=== PATIENT | male | born 1970 | race Caucasian/White ===

== ENCOUNTER 2016-12-18 04:15 | Emergency (ER) | payer SELFPAY ==
[2016-12-18 04:32] VITALS: BP 142/86; PULSE 98; RESP 16; TEMP 97.5
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
[2016-12-18 04:53] LABS: Basophils % (A) 0 %; CH 31.4; CHCM 34.1; Eosinophils # (A) 0.1 k/uL (0-0.7); Eosinophils % (A) 1 %; HDW 2.31; HGB 17.2 gm/dL (13.0-17.5); Luc # (Auto) 0.15; Luc % (Auto) 1; Lymphocytes # (A) 1.5 k/uL (1.0-4.8); Lymphocytes % (A) 13 %; MCH 31.8 pg (25.0-35.0); MCHC 34.4 g/dL (31.0-37.0); MCV 92.6 fL (80.0-100.0); Monocytes # (A) 0.5 k/uL (0-1.0); Monocytes % (A) 5 %; Neutrophils # (A) 9.3 k/uL (1.3-7.7); Neutrophils % (A) 80 %; RDW 13.1 % (11.5-15.5); WBC 11.6 k/uL (3.8-10.6); WBC (Perox) 11.45
[2016-12-18 05:04] LABS: ALT 43 U/L (21-72); AST 33 U/L (17-59); Alkaline Phosphatase 73 U/L (38-126); Amylase 89 U/L (30-110); Anion Gap 12 mmol/L; Blood Urea Nitrogen 17 mg/dL (9-20); Calcium 9.1 mg/dL (8.4-10.2); Carbon Dioxide 24 mmol/L (22-30); Chloride 105 mmol/L (98-107); Glucose 121 mg/dL (74-99); Non-African American GFR(MDRD) >60 (>60 ml/min/1.73 sqM); Potassium 4.2 mmol/L (3.5-5.1); Sodium 141 mmol/L (137-145); Total Bilirubin 0.4 mg/dL (0.2-1.3); Total Protein 7.5 g/dL (6.3-8.2)
[2016-12-18 05:05] LABS: Partial Thromboplastin Time 23.9 sec (22.0-30.0); Prothrombin Time 10.6 sec (9.0-12.0)
[2016-12-18 05:06] LABS: Alcohol 206 mg/dL
[2016-12-18 05:21] LABS: Creatine Kinase 168 U/L (55-170)
[2016-12-18 05:32] LABS: Creatine Kinase MB 1.4 ng/mL (0.0-2.4); Troponin I <0.012 ng/mL (0.000-0.034)
[2016-12-18] MEDS ORDERED: MORPHINE SULFATE 4 MG/ML SYRINGE IV STA (06:16)
[2016-12-18] MEDS ORDERED: TOPICAL SKIN ADHESIVE 1 EACH AMP TOPICAL ONE ×2 (06:22→06:27)
--- NOTE | 2016-12-20 02:44 | CDI ---
Documentation Clarification OP Dear German TOLBERT MD: Please do addendum to ED report for HPI and physical exam. Thank you, Mallory Torres Clerk Checker If you have any question, Please contact harbor department manager at [phone] [facility]
== END 2016-12-18 07:42 | disposition home or self-care (01) ==
LOC: EC 04:15
DX: S01.311A Laceration without foreign body of right ear, initial encounter (principal); J45.909 Unspecified asthma, uncomplicated; Z79.51 Long term (current) use of inhaled steroids; Z79.52 Long term (current) use of systemic steroids; Z79.899 Other long term (current) drug therapy; Z88.6 Allergy status to analgesic agent; V86.59XA Driver of other special all-terrain or other off-road motor vehicle injured in nontraffic accident, initial encounter; Y92.89 Other specified places as the place of occurrence of the external cause
CPT/HCPCS: 36415; 86900; 86901; 80053; 82150; 82550; 82553; 83605; 83690; 84484; 85025; 85610; 85730; 86850; 80320; 71010; 99283; 96374; 12013; J2270; 93005

== ENCOUNTER → 2017-02-08 | Outpatient (CLI) | payer SELFPAY ==
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
== END | disposition home or self-care (01) ==
LOC: RADXRMAIN 13:43
PROVIDERS: ATTEND Internal Medicine
DX: J98.11 Atelectasis (principal); R07.89 Other chest pain
CPT/HCPCS: 71020

== ENCOUNTER → 2017-05-20 | Outpatient (CLI) | payer BC ==
[2017-05-20 11:05] LABS: Basophils # (A) 0.1 k/uL (0-0.2); Basophils % (A) 1 %; Eosinophils # (A) 1.2 k/uL (0-0.7); Eosinophils % (A) 11 %; HCT 48.8 % (39.0-53.0); HGB 16.1 gm/dL (13.0-17.5); Lymphocytes # (A) 1.8 k/uL (1.0-4.8); Lymphocytes % (A) 17 %; MCH 31.1 pg (25.0-35.0); MCV 94.2 fL (80.0-100.0); Mean Platelet Volume 7.4; Monocytes # (A) 0.6 k/uL (0-1.0); Monocytes % (A) 5 %; Neutrophils # (A) 6.5 k/uL (1.3-7.7); Neutrophils % (A) 64 %; Platelet Count 221 k/uL (150-450); RBC 5.19 m/uL (4.30-5.90); RDW 14.5 % (11.5-15.5); WBC 10.2 k/uL (3.8-10.6)
[2017-05-20 11:27] LABS: ALT 35 U/L (21-72); AST 29 U/L (17-59); Albumin 3.9 g/dL (3.5-5.0); Alkaline Phosphatase 66 U/L (38-126); Anion Gap 10 mmol/L; Blood Urea Nitrogen 20 mg/dL (9-20); Calcium 9.3 mg/dL (8.4-10.2); Carbon Dioxide 26 mmol/L (22-30); Chloride 107 mmol/L (98-107); Glucose 85 mg/dL (74-99); Potassium 4.1 mmol/L (3.5-5.1); Sodium 143 mmol/L (137-145); Total Bilirubin 0.6 mg/dL (0.2-1.3); Total Protein 6.4 g/dL (6.3-8.2)
[2017-05-20 11:41] LABS: Total Eosinophil Count 1122 #EOS/uL (150-300)
[2017-05-20 12:37] LABS: Erythrocyte Sedimentation Rate 6 mm/hr (0-15)
[2017-05-22 14:09] LABS: C-ANCA <1:20 Titer (<1:20); P-ANCA <1:20 Titer (<1:20)
== END | disposition home or self-care (01) ==
LOC: LABWHC1 10:49
PROVIDERS: ATTEND Internal Medicine
DX: J82 Pulmonary eosinophilia, not elsewhere classified (principal)
CPT/HCPCS: 36415; 80053; 85008; 85025; 85652; 86038; 86255

== ENCOUNTER → 2017-06-02 | Outpatient (CLI) | payer BC ==
--- NOTE | 2017-06-02 15:51 | XR ---
EXAMINATION TYPE: XR elbow complete RT DATE OF EXAM: 06/02/2017 COMPARISON: NONE HISTORY: Fall, pain x18 months TECHNIQUE: Three-view right elbow FINDINGS: Radius aligns normally with the humerus. Anterior fat pad is normal. No elevation of chipper ior fat pad is evident. Olecranon is unremarkable. Soft tissues are normal. IMPRESSION: 1. Normal three-view right elbow.
--- NOTE | 2017-06-02 15:51 | XR ---
EXAMINATION TYPE: XR cervical spine comp DATE OF EXAM: 06/02/2017 COMPARISON: NONE HISTORY: neck pain arm pain radiculopathy cervalgia TECHNIQUE: Five-view cervical spine FINDINGS: Odontoid tip is limited due to overlying occiput. Prevertebral space is normal. Disc height s are preserved. Vertebral body heights are preserved. Posterior spinal lamellar line is intact. Fora men are patent. IMPRESSION: 1. Visualized cervical spine is unremarkable.
== END | disposition home or self-care (01) ==
LOC: RADXRYALE 15:27
PROVIDERS: ATTEND Family Medicine
DX: M25.521 Pain in right elbow (principal); M54.12 Radiculopathy, cervical region
CPT/HCPCS: 72050

== ENCOUNTER → 2020-04-14 | Outpatient (CLI) | payer BC ==
[2020-04-14 09:26] LABS: Basophils # (A) 0.1 k/uL (0-0.2); Basophils % (A) 1 %; Eosinophils # (A) 0.1 k/uL (0-0.7); Eosinophils % (A) 2 %; HCT 46.3 % (39.0-53.0); HGB 15.2 gm/dL (13.0-17.5); Lymphocytes # (A) 2.1 k/uL (1.0-4.8); Lymphocytes % (A) 27 %; MCH 31.3 pg (25.0-35.0); MCHC 32.8 g/dL (31.0-37.0); MCV 95.2 fL (80.0-100.0); Mean Platelet Volume 7.2; Monocytes # (A) 0.6 k/uL (0-1.0); Monocytes % (A) 7 %; Neutrophils % (A) 63 %; Platelet Count 219 k/uL (150-450); RBC 4.86 m/uL (4.30-5.90); RDW 12.8 % (11.5-15.5)
[2020-04-14 09:31] LABS: Total Eosinophil Count 135 #EOS/uL (150-300)
[2020-04-14 10:32] LABS: Erythrocyte Sedimentation Rate 3 mm/hr (0-15)
== END | disposition home or self-care (01) ==
LOC: LABWHC1 08:14
PROVIDERS: ATTEND Internal Medicine
DX: J45.909 Unspecified asthma, uncomplicated (principal)
CPT/HCPCS: 36415; 82785; 85008; 85025; 85652

== ENCOUNTER → 2020-10-02 | Outpatient (CLI) | payer BC ==
--- NOTE | 2020-10-02 13:08 | XR ---
EXAMINATION TYPE: XR lumbosacral spine 5 views DATE OF EXAM: 10/02/2020 Comparison: 07/27/2015 Clinical History: 50-year-old male M545, M5136, LBP, DDD Findings: Mild anterior wedging at L1 was seen on the prior 2016 exam. Hypertrophic facet arthropathy mid to lo wer lumbar spine. Trace grade 1 retrolisthesis L3-L4. Remaining alignment is maintained. Mild to mode rate degenerative disc disease with disc space narrowing at L3-L4, progressed from 2016. No new verte bral compression collapse. Slight dextro convex curvature of the lumbar spine. There may be a left L5 hemisacralization. Impression: 1. Suggestion of a left L5 hemisacralization. Slight dextroconvex scoliotic curvature of the lumbar s pine. 2. Hypertrophic facet arthropathy mid to lower lumbar spine with trace degenerative grade 1 retrolist hesis at L3-L4. 3. Mild anterior wedging deformity of L1 remains unchanged.
== END | disposition home or self-care (01) ==
LOC: RADXRYALE 08:55
PROVIDERS: ATTEND Family Medicine
DX: M41.86 Other forms of scoliosis, lumbar region (principal); M47.816 Spondylosis without myelopathy or radiculopathy, lumbar region; M43.16 Spondylolisthesis, lumbar region
CPT/HCPCS: 72110

== ENCOUNTER 2021-05-31 16:56 | Emergency (ER) | payer BC ==
[2021-05-31 17:37] VITALS: TEMP 98.9
--- NOTE | 2021-05-31 18:59 | XR ---
EXAMINATION TYPE: XR chest 2V DATE OF EXAM: 05/31/2021 6:16 PM COMPARISON:Multiple radiographs, with the most recent on 02/08/2017 TECHNIQUE: Frontal and lateral views of the chest. CLINICAL INDICATION:Male, 50 years old with history of cough; FINDINGS: Lungs/Pleura: There is flattening of the diaphragm with increased lucency of the lungs. No evidence o f pneumothorax, pleural effusion or focal consolidation. Pulmonary vascularity: Unremarkable. Heart/mediastinum: Cardiomediastinal silhouette is unremarkable. Musculoskeletal: Pectus excavatum morphology to the chest. Remote right rib injury. IMPRESSION: 1. No acute cardiopulmonary disease/process. 2. COPD changes.
[2021-05-31] MEDS ORDERED: methylPREDNISolone SOD SUCCI 125 MG/2 ML VIAL IM STA (19:27)
--- NOTE | 2021-05-31 19:30 | ED ---
General Adult HPI - General Chief complaint: Upper Respiratory Infection Stated complaint: Covid +, wants chest xray Time Seen by Provider: 05/31/21 19:17 Source: family, RN notes reviewed Mode of arrival: ambulatory Limitations: no limitations - History of Present Illness Initial comments: This is a pleasant 50-year-old male presents to emergency department complaining of cough, some wheezing, tested positive for COVID-19 last . Complaining of fatigue, cough, minimal shortness of breath. No headache, no fever or chills, no changes in vision or hearing, no sore throat or difficulty with speech, no neck pain, no chest pain, no abdominal pain, no nausea or vomiting, no changes in urination or bowel movements, no numbness or tingling, no extremity pain, no skin rashes or lesions. - Related Data Home Medications Medication Instructions Recorded Confirmed Montelukast [Singulair] 10 mg PO HS 07/27/15 04/15/19 predniSONE 5 mg PO DAILY 07/27/15 04/15/19 Inhaler (Unknown) 1 puff INHALATION QAM 04/15/19 Loratadine [Claritin] 10 mg PO DAILY 04/15/19 Previous Rx's Medication Instructions Recorded predniSONE 50 mg PO DAILY #6 tab 05/31/21 Allergies Allergy/AdvReac Type Severity Reaction Status Date / Time aspirin Allergy Anaphylaxis Verified 05/31/21 17:37 ibuprofen Allergy Anaphylaxis Verified 05/31/21 17:37 ketorolac tromethamine Allergy Anaphylaxis Verified 05/31/21 17:37 [From Toradol] Review of Systems ROS Statement: Those systems with pertinent positive or pertinent negative responses have been documented in the HPI. ROS Other: All systems not noted in ROS Statement are negative. Past Medical History Past Medical History: Asthma, GERD/Reflux Additional Past Medical History / Comment(s): problems swallowing History of Any Multi-Drug Resistant Organisms: MRSA Date of last positivie culture/infection: 07/05/19 MDRO Source:: Right Leg Past Surgical History: Hernia Repair Additional Past Surgical History / Comment(s): nasal polyp removal Past Anesthesia/Blood Transfusion Reactions: No Reported Reaction Past Psychological History: No Psychological Hx Reported Smoking Status: Never smoker Past Alcohol Use History: None Reported Past Drug Use History: None Reported - Past Family History Mother Family Medical History: No Reported History Father Family Medical History: No Reported History General Exam - General Exam Comments Initial Comments: Vital signs reviewed, stable, patient does not appear to be ill or toxic. No increased work of breathing. Limitations: no limitations General appearance: alert, in no apparent distress Head exam: Present: atraumatic, normocephalic, normal inspection Eye exam: Present: normal appearance, PERRL, EOMI. Absent: scleral icterus, conjunctival injection, periorbital swelling ENT exam: Present: normal exam, mucous membranes moist Neck exam: Present: normal inspection. Absent: tenderness, meningismus, lymphadenopathy Respiratory exam: Present: wheezes. Absent: normal lung sounds bilaterally, respiratory distress, rales, rhonchi, stridor, chest wall tenderness, accessory muscle use, decreased breath sounds, prolonged expiratory Cardiovascular Exam: Present: regular rate, normal rhythm, normal heart sounds. Absent: systolic murmur, diastolic murmur, rubs, gallop, clicks GI/Abdominal exam: Present: soft, normal bowel sounds. Absent: distended, tenderness, guarding, rebound, rigid Extremities exam: Present: normal inspection, full ROM, normal capillary refill. Absent: tenderness, pedal edema, joint swelling, calf tenderness Back exam: Present: normal inspection Neurological exam: Present: alert, oriented X3, CN II-XII intact Psychiatric exam: Present: normal affect, normal mood Skin exam: Present: warm, dry, intact, normal color. Absent: rash Course Vital Signs 05/31/21 17:34 Temperature 98.9 F Pulse Rate 86 Respiratory 20 Rate Blood Pressure 131/78 O2 Sat by Pulse 96 Oximetry Medical Decision Making - Medical Decision Making Patient presents with symptomatology related to COVID-19 as well as a mild asthma exacerbation. We'll treat with corticosteroids, Solu-Medrol given here. Six-day course of prednisone 50 mg daily. Patient has inhalers at home. Patient also sees a metal container maker. We'll have him call the morning without fail. Illnesses Zithromax yesterday. Follow-up with your regular physician as directed. Return to the ER immediately if any symptoms worsen, new symptoms arise, or any other problems develop. Disposition Clinical Impression: COVID-19, Asthma exacerbation Disposition: HOME SELF-CARE Condition: Stable Instructions (If sedation given, give patient instructions): Coronavirus Disease 2019 (COVID-19), Asthma (ED) Additional Instructions: SELF QUARANTINE DISCHARGE: As you are at risk for symptoms due to coronavirus, please stay home and stay away from others as much as possible. Please maintain social distance of 6 feet if possible. You should not return to work until at least 3 days (72 hours) have passed since recovery of symptoms. This defined as resolution of fever without the use of fever reducing medicines and improvement in respiratory symptoms (e.g,, cough, shortness of breath) Isolation can end at least 5 days after symptom onset and after fever ends for 24 hours (without the use of fever-reducing medication) and symptoms are improving, if these people can continue to properly wear a well-fitted mask around others for 5 more days after the 5-day isolation period. If you're still having symptoms at the end of 5 day period, isolate for an additional 5 days. More information about what to do if you are sick can be found on the CDC website at https://www.cdc.gov/coronavi [place]/2019-ncov/xo-vag-mlb-sick/dqdoj-dbzf-bmtk.html Expect the symptoms to last for 7-14 days from onset. Use acetaminophen (Tylenol) as needed for discomfort. You can take a maximum of 1 gram every 6 hours for discomfort, with your total dose in 24 hours not exceeding 4 grams. Be sure to maintain hydration. Drink continuous water and/or items high in vitamin C, such as orange juice and/or lemonade. Unless you have high blood pressure, you may consider Sudafed (which is [id number]) for nasal congestion. I would suggest that a short acting Sudafed rather than the 24 hour Sudafed. For a cough you may take Mucinex or Robitussin. Also consider the use of Vicks Vapor Rub or your chest when you sleep. Use a humidifier that is cleaned frequently, in the bedroom at night. For Nausea /Vomiting/Diarrhea associated with your Illness: o Small frequent sips of room temperature liquids. o Diet: [employer] - If you are still experiencing discomfort and/or nausea please slowly advancing your diet using the BRAT Diet = bananas, rice, apples/apple sauce, toast. o With diarrhea avoid any dairy for 48 hours after symptoms resolved. o Continue with activity as tolerated. If your symptoms do get worse and you believe that the upper respiratory infection has developed into something else, such as pneumonia or severe dehydration, please return to the emergency department or follow-up with your primary care. But expect to be symptomatic for the days as indicated above Call your metal container maker in the morning to touch base, at least virtually. Prescriptions: predniSONE 50 mg PO DAILY #6 tab Is patient prescribed a controlled substance at d/c from ED?: No Referrals: Kenton Anthony DO [Primary Care Provider] - 06/02/21 Rowan Hernandez MD [STAFF PHYSICIAN] - 06/01/21 Time of Disposition: 19:29
[2021-05-31 19:44] VITALS: RESP 18
[2021-05-31 19:45] VITALS: BP 124/76; PULSE 78
== END 2021-05-31 19:44 | disposition home or self-care (01) ==
LOC: EC 16:56
DX: U07.1 COVID-19 (principal); J45.901 Unspecified asthma with (acute) exacerbation; K21.9 Gastro-esophageal reflux disease without esophagitis; Z79.52 Long term (current) use of systemic steroids; Z79.899 Other long term (current) drug therapy
CPT/HCPCS: 71046; 99285; 96372; J2930

== ENCOUNTER 2022-01-26 10:52 | Day surgery (SDC) | payer BC ==
[~2022-01-26 10:52] MED LIST: LACTATED RINGERS 1,000 ML IV SCH; LIDOCAINE 1% (10MG/ML) FOR IV START INTRADERMA PRN
[2022-01-26 12:00] VITALS: TEMP 97.6
[2022-01-26 12:16] LABS: Glucose,Whole Blood 72 mg/dL (70-110)
[2022-01-26] MEDS ORDERED: PROPOFOL 10 MG/ML 20 ML VIAL IV ONE (12:34)
--- NOTE | 2022-01-26 12:56 | P.PCN ---
Date of Procedure: 01/26/22 Procedure(s) Performed: BRIEF HISTORY: Patient is a 51-year-old pleasant white male scheduled for an elective colonoscopy as a part of screening for colorectal neoplasia PROCEDURE PERFORMED: Colonoscopy with biopsy. PREOPERATIVE DIAGNOSIS: Screening for colon cancer. IV sedation per Anesthesia. PROCEDURE: After informed consent was obtained, the patient, was brought into the endoscopy unit. IV sedation was administered by Anesthesia under continuous monitoring. Digital rectal examination was normal. Initially the Olympus CF-160 flexible video colonoscope was then inserted in the rectum, gradually advanced into the cecum without any difficulty. Careful examination was performed as the scope was gradually being withdrawn. Ileocecal valve and the appendiceal orifice were visualized and appeared normal. Prep was excellent. Mucosa of the cecum, ascending colon, transverse colon, appeared normal. In the descending colon there was a 3 mm sessile polyp removed by cold biopsy. Scattered left-sided diverticulosis seen. Rest of the descending colon, sigmoid colon, and rectum appeared normal. Retroflexion was performed in the rectum and no lesions were seen. The patient tolerated the procedure well. IMPRESSION: 3 mm descending colon polyp status post cold biopsy Scattered sigmoid diverticula RECOMMENDATIONS: Findings of this examination were discussed with the patient this family. He was advised to follow with the biopsy results. If the biopsy results and he can have a repeat colonoscopy in 5 years..
[2022-01-26 13:22] VITALS: RESP 16
[2022-01-26 13:23] VITALS: BP 104/60; PULSE 68
== END 2022-01-26 13:47 | disposition home or self-care (01) ==
LOC: ORWHC2ENDO 10:52
PROVIDERS: ATTEND Internal Medicine Gastroenterology
DX: Z12.11 Encounter for screening for malignant neoplasm of colon (principal); K57.30 Diverticulosis of large intestine without perforation or abscess without bleeding; D12.4 Benign neoplasm of descending colon
CPT/HCPCS: 88305; 45380; J2704

== ENCOUNTER 2024-03-25 07:10 | Emergency (ER) | payer BC, OTHER ==
[2024-03-25 07:14] VITALS: RESP 18
[2024-03-25] MEDS ORDERED: VANCOMYCIN IV PER PHARMACY 1 EACH MISC MISCELLANE PRN (07:51)
--- NOTE | 2024-03-25 08:04 | ED ---
General Adult HPI - General Chief complaint: Skin/Abscess/Foreign Body Stated complaint: Oral Pain Time Seen by Provider: 03/25/24 07:15 Source: patient, RN notes reviewed, old records reviewed Mode of arrival: ambulatory Limitations: no limitations - History of Present Illness Initial comments: This is a 53-year-old male who presents to the emergency department who comes in complaining of left-sided facial swelling patient states that started Monday and on went to the urgent care and they gave him an antibiotic. Patient states it was Bactrim because the sore started in his nose and then his face became swollen. Patient states he has a history of MRSA. Patient denies any fever chills. Patient states that inside his nose it was draining some pus. Patient states it got a little better on Monday but it got much worse today so he decided to come back into the emergency department. - Related Data Home Medications Medication Instructions Recorded Confirmed Montelukast [Singulair] 10 mg PO HS 07/27/15 01/26/22 predniSONE 5 mg PO DAILY 07/27/15 01/26/22 Loratadine [Claritin] 10 mg PO DAILY 04/15/19 01/26/22 Unk Nucala 1 injection SQ DIRECTED 01/25/22 01/26/22 Unk Omeprazole 1 tab PO DAILY 01/25/22 01/26/22 Previous Rx's Medication Instructions Recorded Cephalexin [Keflex] 500 mg PO Q6HR #40 cap 03/25/24 Allergies Allergy/AdvReac Type Severity Reaction Status Date / Time aspirin Allergy Anaphylaxis Verified 03/25/24 07:15 ibuprofen Allergy Anaphylaxis Verified 03/25/24 07:15 ketorolac tromethamine Allergy Anaphylaxis Verified 03/25/24 07:15 [From Toradol] Review of Systems ROS Statement: Those systems with pertinent positive or pertinent negative responses have been documented in the HPI. ROS Other: All systems not noted in ROS Statement are negative. Past Medical History Past Medical History: Asthma, GERD/Reflux Additional Past Medical History / Comment(s): problems swallowing controlled with omeprazole History of Any Multi-Drug Resistant Organisms: MRSA Date of last positivie culture/infection: 07/05/19 MDRO Source:: Right Leg Past Surgical History: Hernia Repair Additional Past Surgical History / Comment(s): nasal polyp removal, left inguinal hernia repair. Past Anesthesia/Blood Transfusion Reactions: No Reported Reaction Past Psychological History: No Psychological Hx Reported Smoking Status: Never smoker Past Alcohol Use History: None Reported Past Drug Use History: None Reported - Past Family History Mother Family Medical History: No Reported History Father Family Medical History: No Reported History General Exam - General Exam Comments Initial Comments: GENERAL: Patient is well-developed and well-nourished. Patient is nontoxic and well- hydrated and is in mild distress. ENT: Patient is left side of the face is swollen no obvious area of erythema or or area that is fluctuant. Patient is tender just to the lateral aspect of the nose on the cheek. EYES: The sclera were anicteric and conjunctiva were pink and moist. Extraocular movements were intact and pupils were equal round and reactive to light. Eyelids were unremarkable. NEUROLOGIC: Patient is alert and oriented x3. Cranial nerves II through XII are grossly intact. Motor and sensory are also intact. Normal speech, volume and content. Symmetrical smile. MUSCULOSKELETAL: Normal extremities with adequate strength and full range of motion. LYMPHATICS: No significant lymphadenopathy is noted PSYCHIATRIC: Normal psychiatric evaluation. Limitations: no limitations Course Vital Signs 03/25/24 03/25/24 07:11 09:08 Temperature 98.1 F 98.4 F Pulse Rate 86 82 Respiratory 18 18 Rate Blood Pressure 121/80 118/72 O2 Sat by Pulse 98 99 Oximetry Medical Decision Making - Medical Decision Making Was pt. sent in by a medical professional or institution (BILLIE Johnson, OIL TESTER, urgent care, hospital, or half-way...) When possible be specific @ -No Did you speak to anyone other than the patient for history (EMS, parent, family, police, friend...)? What history was obtained from this source @ -No Did you review nursing and triage notes (agree or disagree)? Why? @ -I reviewed and agree with nursing and triage notes Were old charts reviewed (outside hosp., previous admission, EMS record, old EKG, old radiological studies, urgent care reports/EKG's, half-way records)? Report findings @ -No old charts were reviewed Differential Diagnosis? @ -Abscess secondary to MRSA, dental infection, cellulitis, this is not an all- inclusive list EKG interpreted by me (3pts min.). @ -As above X-rays interpreted by me (1pt min.). @ -None done CT interpreted by me (1pt min.). @ -None done U/S interpreted by me (1pt. min.). @ -None done What testing was considered but not performed or refused? (CT, X-rays, U/S, labs)? Why? @ -None What meds were considered but not given or refused? Why? @ -None Did you discuss the management of the patient with other professionals (professionals i.e. DrDeng, PA, OIL TESTER, lab, RT, psych nurse, outreach and education social worker, commercial loan assistant, teacher, guest relations officer, shelter case manager)? Give summary @ -No Was smoking cessation discussed for >3mins.? @ -No Was critical care preformed (if so, how long)? @ -No Were there social determinants of health that impacted care today? How? (Homelessness, low income, unemployed, alcoholism, drug addiction, transportation, low edu. Level, literacy, decrease access to med. care, alf, rehab)? @ -No Was there de-escalation of care discussed even if they declined (Discuss DNR or withdrawal of care, Hospice)? DNR status @ -No What co-morbidities impacted this encounter? (DM, HTN, Smoking, COPD, CAD, Cancer, CVA, ARF, Chemo, Hep., AIDS, mental health diagnosis, sleep apnea, morbid obesity)? @ -None Was patient admitted / discharged? Hospital course, mention meds given and route, prescriptions, significant lab abnormalities, going to OR and other pertinent info. @ -Patient did not have insurance we did not want the CAT scan he did not want me to try to I&D the abscess at this time. Patient was willing to get a dose of vancomycin and continue his antibiotics at home and if it worsened he would come back. Undiagnosed new problem with uncertain prognosis? @ -No Drug Therapy requiring intensive monitoring for toxicity (Heparin, Nitro, Insulin, Cardizem)? @ -No Were any procedures done? @ -No Diagnosis/symptom? @ -Facial abscess Acute, or Chronic, or Acute on Chronic? @ -Acute Uncomplicated (without systemic symptoms) or Complicated (systemic symptoms)? @ -Complicated Side effects of treatment? @ -No Exacerbation, Progression, or Severe Exacerbation? @ -No Poses a threat to life or bodily function? How? (Chest pain, [place], [place], pneumonia, PE, COPD, DKA, ARF, appy, cholecystitis, CVA, Diverticulitis, Homicidal, Suicidal, threat to staff... and all critical care pts) @ -No - Lab Data Result diagrams: 03/25/24 08:00 03/25/24 08:00 Lab Results 03/25/24 03/25/24 Range/Units 08:00 08:00 WBC 14.6 H (3.8-10.6) k/uL RBC 4.58 (4.30-5.90) m/uL Hgb 14.4 (13.0-17.5) gm/dL Hct 43.4 (39.0-53.0) % MCV 94.8 (80.0-100.0) fL MCH 31.4 (25.0-35.0) pg MCHC 33.1 (31.0-37.0) g/dL RDW 12.9 (11.5-15.5) % Plt Count 210 (150-450) k/uL MPV 7.5 Neutrophils % 77 % Lymphocytes % 13 % Monocytes % 7 % Eosinophils % 2 % Basophils % 0 % Neutrophils # 11.2 H (1.3-7.7) k/uL Lymphocytes # 1.9 (1.0-4.8) k/uL Monocytes # 1.0 (0-1.0) k/uL Eosinophils # 0.3 (0-0.7) k/uL Basophils # 0.0 (0-0.2) k/uL Sodium 135 L (137-145) mmol/L Potassium 3.8 (3.5-5.1) mmol/L Chloride 105 (98-107) mmol/L Carbon Dioxide 25 (22-30) mmol/L Anion Gap 5 mmol/L BUN 20 (9-20) mg/dL Creatinine 0.93 (0.66-1.25) mg/dL Est GFR (CKD-EPI)AfAm >90 (>60 ml/min/1.73 sqM) Est GFR (CKD-EPI)NonAf >90 (>60 ml/min/1.73 sqM) Glucose 88 (74-99) mg/dL Calcium 8.6 (8.4-10.2) mg/dL Total Bilirubin 1.0 (0.2-1.3) mg/dL AST 25 (17-59) U/L ALT 19 (4-49) U/L Alkaline Phosphatase 67 (38-126) U/L Total Protein 6.2 L (6.3-8.2) g/dL Albumin 3.8 (3.5-5.0) g/dL Disposition Clinical Impression: Facial abscess Disposition: HOME SELF-CARE Condition: Good Instructions (If sedation given, give patient instructions): Abscess (ED) Additional Instructions: Patient should continue Bactrim at home and start taking the Keflex as prescribed Patient should return to the emergency department if any symptoms worsen or he has new symptoms such as fever Prescriptions: Cephalexin [Keflex] 500 mg PO Q6HR #40 cap Is patient prescribed a controlled substance at d/c from ED?: No Referrals: Kenton Anthony DO [Primary Care Provider] - 1-2 days Time of Disposition: 10:01
[2024-03-25 08:15] LABS: Basophils % (A) 0 %; Eosinophils # (A) 0.3 k/uL (0-0.7); Eosinophils % (A) 2 %; HCT 43.4 % (39.0-53.0); HGB 14.4 gm/dL (13.0-17.5); Lymphocytes # (A) 1.9 k/uL (1.0-4.8); Lymphocytes % (A) 13 %; MCH 31.4 pg (25.0-35.0); MCHC 33.1 g/dL (31.0-37.0); MCV 94.8 fL (80.0-100.0); Mean Platelet Volume 7.5; Monocytes % (A) 7 %; Neutrophils # (A) 11.2 k/uL (1.3-7.7); Neutrophils % (A) 77 %; Platelet Count 210 k/uL (150-450); RBC 4.58 m/uL (4.30-5.90); RDW 12.9 % (11.5-15.5); WBC 14.6 k/uL (3.8-10.6)
[2024-03-25 08:25] LABS: ALT 19 U/L (4-49); AST 25 U/L (17-59); African American GFR (CKD) >90 (>60 ml/min/1.73 sqM); Albumin 3.8 g/dL (3.5-5.0); Alkaline Phosphatase 67 U/L (38-126); Anion Gap 5 mmol/L; Blood Urea Nitrogen 20 mg/dL (9-20); Calcium 8.6 mg/dL (8.4-10.2); Carbon Dioxide 25 mmol/L (22-30); Chloride 105 mmol/L (98-107); Glucose 88 mg/dL (74-99); Non-African American GFR(CKD) >90 (>60 ml/min/1.73 sqM); Potassium 3.8 mmol/L (3.5-5.1); Sodium 135 mmol/L (137-145); Total Protein 6.2 g/dL (6.3-8.2)
[2024-03-25] MEDS: VANCOMYCIN 1,500 MG in SODIUM CHLORIDE 0.9% 500 ML 500 ML IVPB STA (08:25)
[2024-03-25] MEDS: ACETAMINOPHEN TAB 500 MG TAB PO STA (08:28)
[2024-03-25] MEDS: ACETAMINOPHEN IV (For NPO) 1,000 MG in EMPTY BAG 1 BAG IVPB STA (08:30)
[2024-03-25 10:57] VITALS: PULSE 68
[2024-03-25 12:07] VITALS: BP 113/71; TEMP 98.2
== END 2024-03-25 12:08 | disposition home or self-care (01) ==
LOC: EC 07:10
DX: L02.01 Cutaneous abscess of face (principal); Z88.5 Allergy status to narcotic agent; Z88.6 Allergy status to analgesic agent
CPT/HCPCS: 36415; 80053; 85025; 87040; 99283; 96365; 96366 ×2; J3370